=== PATIENT | male | born 1955 | race Caucasian/White ===

== ENCOUNTER 2022-12-15 21:49 | Emergency (ER) | payer OTHER ==
[2022-12-15 23:29] LABS: Absolute Lymphocytes (CBC) 1.6 K/uL (0.7-4.9); Hematocrit 46.1 % (39.6-49.0); MCV 86.4 fL (80-100); MPV 8.2 fL (7.6-11.3); RBC Red Blood Cell Count 5.34 M/uL (4.33-5.43)
[2022-12-15] MEDS ORDERED: cloNIDine HCL 0.1 MG TAB ONE (23:29)
[2022-12-15] MEDS ORDERED: PROMETHAZINE 25 MG TABLET ONE (23:29)
[2022-12-15] MEDS ORDERED: IBUPROFEN 400 MG TAB ONE (23:30)
[2022-12-15] MEDS ORDERED: METOCLOPRAMIDE 5 MG TAB ONE (23:30)
[2022-12-15] MEDS ORDERED: TRAMADOL HCL 50 MG TAB ONE (23:30)
[2022-12-15 23:31] LABS: Protime INR 1.05
[2022-12-15 23:45] LABS: Albumin 3.9 g/dL (3.4-5.0); Bilirubin Direct 0.2 mg/dL (0-0.2); Bilirubin Indirect, Calculated 0.7 mg/dL (0.2-0.8); Bilirubin Total 0.9 mg/dL (0.2-1.0); Magnesium 2.3 mg/dL (1.6-2.4); Potassium 3.7 mEq/L (3.5-5.1); Protein, Total 7.5 g/dL (6.4-8.2); Troponin High Sensitivity 4.9 pg/mL (<58.9)
--- NOTE | 2022-12-16 02:59 | ER ---
Nurse's Notes [facility] Name: Arjun Ordoñez Age: 67 yrs Sex: Male : 1955 Arrival Date: 12/15/2022 Time: 21:49 Bed 4 Private MD: Diagnosis: Essential (primary) hypertension;Tension-type headache Presentation: 12/15 22:32 Chief complaint: Patient states: BP has been high all week. been taking extra BP meds lg3 per my DR but its not working. denies CP. complaints headache and nausea. Coronavirus screen: Client denies travel out of the [place] in the last 14 days. At this time, the client does not indicate any symptoms associated with coronavirus-19. Ebola Screen: No symptoms or risks identified at this time. Initial Sepsis Screen: Does the patient meet any 2 criteria? No. Patient's initial sepsis screen is negative. Does the patient have a suspected source of infection? No. Patient's initial sepsis screen is negative. Risk Assessment: Do you want to hurt yourself or someone else? Patient reports no desire to harm self or others. Onset of symptoms is unknown. 22:32 Method Of Arrival: Ambulatory lg3 22:32 Acuity: MOSHE 3 lg3 Triage Assessment: 22:35 Headache History: Denies prior headaches. General: Appears in no apparent distress. lg3 comfortable, Behavior is calm, cooperative. Pain: Complains of pain in head Pain does not radiate. Pain currently is 6 out of 10 on a pain scale. Pain began gradually, Also complains of nausea. EENT: No deficits noted. No signs and/or symptoms were reported regarding the EENT system. Neuro: No deficits noted. [place] Agitation-Sedation Scale (RASS): 0 - Alert and Calm Level of Consciousness is awake, alert, obeys commands, Oriented to person, place, time, situation, Reports headache. Cardiovascular: No deficits noted. Denies chest pain, shortness of breath, Capillary refill < 3 seconds Clubbing of nail beds is absent JVD is absent Patient's skin is warm and dry. Respiratory: No deficits noted. Airway is patent Respiratory effort is even, unlabored, Respiratory pattern is regular, symmetrical. GI: No deficits noted. No signs and/or symptoms were reported involving the gastrointestinal system. : No deficits noted. No signs and/or symptoms were reported regarding the genitourinary system. Derm: No deficits noted. No signs and/or symptoms reported regarding the dermatologic system. Skin is intact, is healthy with good turgor, Skin is dry, Skin is normal, Skin temperature is warm. Musculoskeletal: No deficits noted. No signs and/or symptoms reported regarding the musculoskeletal system. Circulation, motion, and sensation intact. Range of motion: intact in all extremities. Historical: - Allergies: 22:35 No Known Allergies; lg3 - Home Meds: 22:35 enalapril maleate 20 mg Oral tablet 2 tabs daily [Active]; levothyroxine 88 mcg capsule lg3 daily [Active]; aspirin 81 mg Oral capsule daily [Active]; - PMHx: 22:35 HTN; Hypothyroidism; lg3 - PSHx: 22:35 None; lg3 - Immunization history:: Adult Immunizations up to date, Client reports having NOT received the Covid vaccine. - Social history:: Smoking status: Patient denies any tobacco usage or history of. Patient uses alcohol, occasionally. - Family history:: not pertinent. Screenin/07 02:59 [facility] ED Fall Risk Assessment (Adult) Score/Fall Risk Level 0 - 2 = Low Risk. Abuse as6 screen: Denies threats or abuse. Denies injuries from another. Nutritional screening: No deficits noted. Tuberculosis screening: No symptoms or risk factors identified. Assessment: 00:54 Reassessment: Patient appears in no apparent distress at this time. pt resting with eye as6 closed at this time. no complaints or concerns at this time. Vital Signs: 12/15 22:32 BP 150 / 109; Pulse 97; Resp 17 S; Temp 98.1(O); Pulse Ox 100% on R/A; Weight 108.41 kg lg3 (R); Height 6 ft. 1 in. (R); Pain 0/10; 12/16 00:55 BP 141 / 89; Pulse 63; Resp 18 S; Pulse Ox 95% on R/A; as6 02:52 BP 106 / 76; Pulse 78; Resp 18 S; Pulse Ox 95% on R/A; as6 12/15 22:32 Body Mass Index 31.53 (108.41 kg, 185.42 cm) [facility] 12/15 22:32 Pain Scale: Adult [facility] ED Course: 12/15 21:51 Patient arrived in ED. jj6 22:13 Mane Etienne MD is Attending Physician. sp4 22:35 Triage completed. lg3 22:35 Arm band placed on right wrist. lg3 23:24 Initial lab(s) drawn, by me, sent to lab. EKG done, by ED staff, reviewed by Mane Etienne MD. Inserted saline lock: 20 gauge in left antecubital area, using aseptic technique. Blood collected. 12/16 00:08 CT Head Brain wo Cont In Process Unspecified. EDMS 00:35 Saad Penny, FLETCHER is Primary Nurse. as6 02:56 Scotty Larson DO is Referral Physician. sp4 02:59 Bed in low position. Call light in reach. as6 02:59 No provider procedures requiring assistance completed. as6 03:05 IV discontinued, intact, bleeding controlled, No redness/swelling at site. Pressure as6 dressing applied. Administered Medications: 12/15 23:25 Drug: cloNIDine PO 0.1 mg Route: PO; lg3 12/16 02:59 Follow up: Response: No adverse reaction as6 12/15 23:25 Drug: MetoCLOPramide PO 10 mg Route: PO; lg3 12/16 02:59 Follow up: Response: No adverse reaction as6 12/15 23:25 Drug: traMADol PO 100 mg Route: PO; lg3 12/16 02:59 Follow up: Response: No adverse reaction as6 12/15 23:25 Drug: Promethazine PO 25 mg Route: PO; lg3 12/16 03:00 Follow up: Response: No adverse reaction as6 12/15 23:25 Drug: Ibuprofen PO 800 mg Route: PO; lg3 12/16 03:00 Follow up: Response: No adverse reaction as6 Medication: 02:59 VIS not applicable for this client. as6 Outcome: 02:58 Discharge ordered by . sp4 02:59 Discharged to home ambulatory. as6 02:59 Condition: stable 03:06 Discharge instructions given to patient, Instructed on discharge instructions, follow as6 up and referral plans. medication usage, Demonstrated understanding of instructions, follow-up care, medications, Prescriptions given X 1. 03:06 Patient left the ED. as6 Signatures: [facility] Bre Nguyen RN RN lg3 Carole Artis jj6 Saad Penny RN RN as6 Chelsea Almanzar7 Mane Etienne MD MD sp4 Corrections: (The following items were deleted from the chart) 12/15 22:39 22:35 Pain: Denies pain. lg3 lg3
--- NOTE | 2022-12-16 02:59 | EDPHYS ---
Physician Documentation [facility] Name: Arjun Ordoñez Age: 67 yrs Sex: Male : 1955 Arrival Date: 12/15/2022 Time: 21:49 Bed 4 Private MD: ED Physician Mane Etienne HPI: 12/15 22:13 This 67 yrs old Male presents to ER via Unassigned with complaints of High sp4 Blood Pressure, BP 206/106 HOME READING, Headache. 12/16 07:36 Mr. Ordoñez presents with several days of elevated blood pressure and headache at home. sp4 Patient was made to come in by his family. Patient reported facial redness associated with elevated blood pressure. . Historical: - Allergies: 12/15 22:35 No Known Allergies; lg3 - Home Meds: 22:35 enalapril maleate 20 mg Oral tablet 2 tabs daily [Active]; levothyroxine 88 mcg capsule lg3 daily [Active]; aspirin 81 mg Oral capsule daily [Active]; - PMHx: 22:35 HTN; Hypothyroidism; lg3 - PSHx: 22:35 None; lg3 - Immunization history:: Adult Immunizations up to date, Client reports having NOT received the Covid vaccine. - Social history:: Smoking status: Patient denies any tobacco usage or history of. Patient uses alcohol, occasionally. - Family history:: not pertinent. ROS: 12/16 07:36 Constitutional: Negative for fever, chills, and weight loss, Eyes: Negative for injury, sp4 pain, redness, and discharge, ENT: Negative for injury, pain, and discharge, Neck: Negative for injury, pain, and swelling, Cardiovascular: Negative for chest pain, palpitations, and edema, Respiratory: Negative for shortness of breath, cough, wheezing, and pleuritic chest pain, Abdomen/GI: Negative for abdominal pain, nausea, vomiting, diarrhea, and constipation, Back: Negative for injury and pain, : Negative for injury, bleeding, discharge, and swelling, MS/Extremity: Negative for injury and deformity, Skin: Negative for injury, rash, and discoloration, Neuro: Negative for weakness, numbness, tingling, and seizure, positive for headache Psych: Negative for depression, anxiety, Allergy/Immunology: Negative for hives, rash, and allergies Endocrine: Negative for neck swelling, polydipsia, polyuria, polyphagia, and weight changes Hematologic/Lymphatic: Negative for swollen nodes, abnormal bleeding, and unusual bruising Exam: 02:49 ECG was reviewed by the Attending Physician. EKG time 2322, there is normal sinus sp4 rhythm at a rate of 66, no ST elevation or depression, no ectopy, normal EKG 07:36 Constitutional: This is a well developed, well nourished patient who is awake, alert, sp4 and in no acute distress. Head/Face: Normocephalic, atraumatic. Eyes: Pupils equal round and reactive to light, extra-ocular motions intact. Lids and lashes normal. Conjunctiva and sclera are not injected. Cornea within normal limits. Periorbital areas with no swelling, redness, or edema. ENT: Nares patent. No nasal discharge, no septal abnormalities noted. Tympanic membranes are normal and external auditory canals are clear. Oropharynx with no redness, swelling, or masses, exudates, or evidence of obstruction, uvula midline. Mucous membranes moist. Neck: Trachea midline, no thyromegaly or masses palpated, and no cervical lymphadenopathy. Supple, full range of motion without nuchal rigidity, or vertebral point tenderness. Chest/axilla: Normal chest wall appearance and motion. Nontender with no deformity. No lesions are appreciated. Cardiovascular: Regular rate and rhythm with a normal S1 and S2. No gallops, murmurs, or rubs. Normal PMI, no JVD. No pulse deficits. Respiratory: Lungs have equal breath sounds bilaterally, clear to auscultation and percussion. No rales, rhonchi or wheezes noted. No increased work of breathing, no retractions or nasal flaring. Abdomen/GI: Soft, non-tender, with normal bowel sounds. No distension or tympany. No guarding or rebound. No evidence of tenderness throughout. Back: No spinal tenderness. No costovertebral tenderness. Skin: Warm, dry with normal turgor. Normal color with no rashes, no lesions, and no evidence of cellulitis. MS/ Extremity: Pulses equal, no cyanosis. Neurovascular intact. Full, normal range of motion. Neuro: Awake and alert, GCS 15, oriented to person, place, time, and situation. Cranial nerves II-XII grossly intact. Motor strength 5/5 in all extremities. Sensory grossly intact. Psych: Awake, alert, with orientation to person, place and time. Behavior, mood, and affect are within normal limits Vital Signs: 12/15 22:32 BP 150 / 109; Pulse 97; Resp 17 S; Temp 98.1(O); Pulse Ox 100% on R/A; Weight 108.41 kg lg3 (R); Height 6 ft. 1 in. (R); Pain 0/10; 12/16 00:55 BP 141 / 89; Pulse 63; Resp 18 S; Pulse Ox 95% on R/A; as6 02:52 BP 106 / 76; Pulse 78; Resp 18 S; Pulse Ox 95% on R/A; as6 12/15 22:32 Body Mass Index 31.53 (108.41 kg, 185.42 cm) lg3 12/15 22:32 Pain Scale: Adult lg3 MDM: 12/15 22:14 Patient medically screened. sp4 12/16 02:50 ED course: Two PROCEDURE: Head Brain Wo Cont CLINICAL HISTORY: HEADACHE, HTN TECHNIQUE: sp4 Contiguous axial CT images obtained through the brain without IV contrast. Coronal and sagittal reformatted images were provided. This exam was performed according to our departmental dose-optimization program, which includes automated exposure control, adjustment of the mA and/or kV according to patient size and/or use of iterative reconstruction technique. COMPARISON: None available for comparison FINDINGS: Brain: No significant white matter changes. No focal mass effect. Garcia-white matter differentiation is within normal limits. No hemorrhage. Ventricles: No ventriculomegaly or midline shift. Extra-axial spaces: No extra-axial collection or hemorrhage. Paranasal sinuses and mastoid air cells: Well-aerated Bones: Unremarkable Soft tissues: Unremarkable IMPRESSION: No evidence of acute intracranial pathology. . 07:36 Differential diagnosis: hypertensive crisis, Malignant HTN, intracerebral hemorrhage. sp4 Data reviewed: vital signs, nurses notes, lab test result(s), EKG, radiologic studies, CT scan. Consideration of Admission/Observation Escalation of care including admission/observation considered. ED course: Blood pressure has improved and headache went away, patient stable for discharge home. 12/15 22:13 Order name: Basic Metabolic Panel; Complete Time: 02:48 sp4 12/15 22:13 Order name: CBC with Diff; Complete Time: 02:48 sp4 07/06 22:13 Order name: LFT's; Complete Time: 02:48 sp4 12/15 22:13 Order name: Magnesium; Complete Time: 02:48 sp4 12/15 22:13 Order name: NT PRO-BNP; Complete Time: 02:48 sp4 12/15 22:13 Order name: PT-INR; Complete Time: 02:48 sp4 12/15 22:13 Order name: Troponin HS; Complete Time: 02:48 sp4 12/15 23:08 Order name: CT Head Brain wo Cont sp4 12/15 22:13 Order name: EKG; Complete Time: 22:15 sp4 12/15 22:13 Order name: Cardiac monitoring; Complete Time: 02:46 sp4 12/15 22:13 Order name: EKG - Nurse/Tech; Complete Time: 23:24 sp4 12/15 22:13 Order name: IV Saline Lock; Complete Time: 23:24 sp4 12/15 22:13 Order name: Labs collected and sent; Complete Time: 23:24 sp4 12/15 22:13 Order name: O2 Per Protocol; Complete Time: 23:25 sp4 12/15 22:13 Order name: O2 Sat Monitoring; Complete Time: 23:25 sp4 EC:49 Rate is 66 beats/min. Rhythm is regular, Normal Sinus Rhythm. QRS [place] is Normal. LA sp4 interval is normal. QRS interval is normal. QT interval is normal. T waves are Normal. No ST changes noted. Clinical impression: Normal ECG. Interpreted by me. Administered Medications: 12/15 23:25 Drug: cloNIDine PO 0.1 mg Route: PO; 3 12/16 02:59 Follow up: Response: No adverse reaction 12/15 23:25 Drug: MetoCLOPramide PO 10 mg Route: PO; lg3 12/16 02:59 Follow up: Response: No adverse reaction 12/15 23:25 Drug: traMADol PO 100 mg Route: PO; lg3 12/16 02:59 Follow up: Response: No adverse reaction 12/15 23:25 Drug: Promethazine PO 25 mg Route: PO; lg3 12/16 03:00 Follow up: Response: No adverse reaction 12/15 23:25 Drug: Ibuprofen PO 800 mg Route: PO; lg3 12/16 03:00 Follow up: Response: No adverse reaction as6 Disposition Summary: 12/16/22 02:58 Discharge Ordered Location: Home sp4 Problem: new sp4 Symptoms: have improved sp4 Condition: Stable sp4 Diagnosis - Essential (primary) hypertension sp4 - Tension-type headache sp4 Followup: sp4 - With: Scotty Larson, DO - When: 7 - 10 days - Reason: Recheck today's complaints Discharge Instructions: - Discharge Summary Sheet sp4 - Hypertension, Adult sp4 Forms: - [email or web address] sp4 Prescriptions: - clonidine HCl 0.1 mg Oral tablet - take 1 tablet by ORAL route every 12 hours PRN Systolic Pressure > 180; 60 sp4 tablet; Refills: 0, Product Selection Permitted Signatures: Dispatcher [employer] Bre Nguyen, RN RN lg3 Mane Etienne MD MD sp4 Saad Penny RN as6
[2022-12-16 03:09] VITALS: TEMP 98.1
[2022-12-16 03:11] VITALS: O2SAT 95
[2022-12-16 03:12] VITALS: BP 106/76
--- NOTE | 2022-12-16 15:27 | RAD REPORT ---
EXAM DESCRIPTION: CT - Head Brain Wo Cont - 12/16/2022 1:14 am CLINICAL HISTORY: HEADACHE, HTN TECHNIQUE: Contiguous axial CT images obtained through the brain without IV contrast. Coronal and sa gittal reformatted images were provided. This exam was performed according to our departmental dose-optimization program, which includes autom ated exposure control, adjustment of the mA and/or kV according to patient size and/or use of iterati ve reconstruction technique. COMPARISON: None available for comparison FINDINGS: Brain: No significant white matter changes. No focal mass effect. Garcia-white matter differ entiation is within normal limits. No hemorrhage. Ventricles: No ventriculomegaly or midline shift. Extra-axial spaces: No extra-axial collection or hemorrhage. Paranasal sinuses and mastoid air cells: Well-aerated Bones: Unremarkable Soft tissues: Unremarkable IMPRESSION: No evidence of acute intracranial pathology. Electronically signed by: Kwame Francis MD 12/16/2022 12:34 AM CDT Due to temporary technical issues with the PACS/Fluency reporting system, reports are being signed by the in house radiologists without review as a courtesy to insure prompt reporting. The interpreting radiologist is fully responsible for the content of the report.
--- NOTE | 2022-12-17 16:20 | EKG ---
Test Date: 2022-12-15 Test Time: 23:22:24 Poured Wall Foreman: ELIZABETH MEASUREMENT RESULTS: Intervals: Rate: 66 ME: 158 QRSD: 90 QT: 390 QTc: 408 [place]: P: 55 ME: 158 QRS: 53 T: 52 INTERPRETIVE STATEMENTS: Normal sinus rhythm Normal ECG Compared to ECG 01/18/2022 07:54:18 No significant changes Electronically Signed On 12-17-22 16:17:57 CDT by Fidel Sandoval
== END 2022-12-16 03:06 | disposition home or self-care (01) ==
LOC: ER 21:49
DX: I10 Essential (primary) hypertension (principal); G44.209 Tension-type headache, unspecified, not intractable; E03.9 Hypothyroidism, unspecified; Z79.82 Long term (current) use of aspirin
CPT/HCPCS: 93005; 85025; 80048; 36415; 83735; 85610; 80076; 84484; 83880; 70450; 99284; Q0169